=== PATIENT | female | born 1950 | race Caucasian/White ===

== ENCOUNTER 2016-10-30 21:39 | Inpatient (IN) | payer OTHER ==
[~2016-10-30] VITALS: Ht 154.9 cm; Wt 101.0 kg
--- NOTE | ~2016-10-30 | HP ---
ADMIT: 10/31/2016 RM/LOC: 520 [facility] MR#: [id number] [address] [facility] [address] [place] [id number] MARTIN DIOR [address] [place] [address] Pre-OP History and Physical SEX: F AGE: 66 : 1950 DATE OF SERVICE: CHIEF COMPLAINT: Severe pain and fever. HISTORY OF PRESENT ILLNESS: Martin is a 66-year-old white female, who has been in relatively good health until about 6 to 8 months ago, she had been having some tremors. Really not anything of significance that we were mentioning to watch and decided we might want to have her see a neurologist. She felt she had a bad episode the night prior to her admission. She describes it as a tremor that occurred and caused significant pain in the lower abdomen and into the hip areas. On questioning, this seemed to be even a muscle spasm. She just could not get herself comfortable. Up and down. Finally did start to improve. She felt okay most of the day and we had talked to her earlier in the evening. Due to the recurrent return of the pain and inability to get comfortable, she presented to the emergency room there. In the emergency room, she had an extensive workup including a CAT scan just to make sure there was no abscess. It really did not show anything other than questionable lesions on her liver which were new from a previous scan. Laboratory studies were pretty unremarkable except her CRP was elevated. In addition, she had a fever that was a surprise of 102.9. She is admitted at this time for further evaluation. She is not one who typically has problems, so this is highly unusual for her. She really has not had a lot of other symptoms prior to this. PAST MEDICAL HISTORY: Osteoporosis-DEXA 01/20/2011 with FN -0.1 and LS -3.3. Iron deficiency anemia-peripheral blood with microcytic anemia 05/16/1999, bone marrow biopsy at that time, EGD of the colon felt absorption problem. Pulmonary nodule-CT chest 04/27/2014 with a large periesophageal hiatal hernia and 5 to 6 mm indeterminate right upper lobe nodule. Abnormal nuclear stress test-Cardiolite 05/05/1990 with reversible ischemia in the anterior and inferior myocardium, cardiac cath 06/27/1999. Healthcare maintenance-exam 03/27/2016, mammogram 12/21/2014, Cardiolite 05/05/1999, cath 06/27/1999, Pap 07/30/2009, DEXA 01/20/2011, EGD 05/13/2014, colonoscopy 09/04/2008 with mild sigmoid diverticulosis, CT chest 04/27/2014. Mild persistent asthma. Situational depression. GERD with hiatal hernia-saw GI in [place]. Depression.-controlled, vitamin D deficiency, hypothyroidism, hiatal hernia- EGD 03/31/[address] Perez showed large sliding hiatal hernia, CT chest 07/2014 with large hiatal hernia and near complete intrathoracic stomach due to paraesophageal hiatal hernia, UGI 05/13/2014 with large hiatal hernia, GERD with gastritis, EGD 05/13/2014. Mixed hyperlipidemia with increased cholesterol/increased LDL, vaginal hysterectomy for endometriosis, T and A, status post arthroscopy of the knee, breast biopsy 11/15/1995 with fibrosis on the right, nasal septoplasty. MEDICATIONS: On admission: 1. Fosamax weekly. 2. Aspirin 81 mg two pills daily. 3. QVAR two times a day which she is currently not taking at this time. 4. Vitamin D3 of 5000 international units daily. ADMIT: 10/31/2016 RM/LOC: 520 [facility] MR#: [id number] 2620 [facility] [address] [place] [id number] MARTIN DIOR [address] [place] [address] Pre-OP History and Physical SEX: F AGE: 66 : 1950 5. Lexapro 10 mg daily. 6. Fenofibrate or TriCor 54 mg daily. 7. Iron 325 daily. 8. Flovent 1 puff twice daily. 9. Synthroid 88 mcg. 10.Claritin 10 mg daily. 11.Meloxicam 15 daily with food. 12.Centrum Silver. 13.Fish oil 1000 daily. 14.Pravachol 80 mg daily. ALLERGIES: CODEINE WITH NAUSEA AND VOMITING. SOCIAL HISTORY: Nonsmoker, rare alcohol. No drugs. She is retired 01/17/2013 from [employer] at [employer]. FAMILY HISTORY: Father with heart disease and diabetes. Brother with myelodysplastic syndrome and is currently . Paternal grandfather with heart disease. REVIEW OF SYSTEMS: Basically the pain as above, but did not describe it in her back. At this time, it is more in pelvic. Does not have any urinary symptoms at this time. PHYSICAL EXAMINATION: VITAL SIGNS: Blood pressure 139/81, pulse 105, respirations 18, temp 102.9. GENERAL: This is a well-developed, well-nourished, white female, affect appropriate. SKIN: Warm and dry. HEENT: Normocephalic and atraumatic. Anicteric. Mucous membranes moist. NECK: Supple. LUNGS: Clear to auscultation. CARDIOVASCULAR: Regular without murmur or gallop. ABDOMEN: Soft, nondistended. No reproducible pain. GENITOURINARY/RECTAL: Deferred. EXTREMITIES: No edema. IMPRESSION: 1. Bilateral leg and hip pain. ADMIT: 10/31/2016 RM/LOC: 520 [facility] MR#: [id number] [address] [id number] MARTIN DIOR [address] [place] [address] Pre-OP History and Physical SEX: F AGE: 66 : 1950 2. Fever of 102.9. 3. Urinary tract infection. 4. Hypokalemia. 5. Increased CRP. 6. Liver lesions on scan. DISCUSSION: We will get an MRI of the liver mass protocol to look at the liver lesions. We will also look at her back with the MRI to make sure there is nothing going on in her spine. The pain is so severe and does sound radicular. PLAN: See chart. Delores Acuña MD/ kody JOB #: [id number] CC: Delores Acuña, Attending Physician Delores Acuña, Family Physician
[2016-11-05] MEDS ORDERED: LOFIBRA54 MG PO (16:04)
[2016-11-05] MEDS ORDERED: SYNTHROID DP0.088 MG PO (16:04)
[2016-11-05] MEDS ORDERED: IRON325 M1 PO (16:04)
[2016-11-05] MEDS ORDERED: PRAVACHOL80 MG PO (16:04)
[2016-11-05] MEDS ORDERED: FLOVENT 110MCG12 GM IH (16:05)
[2016-11-05] MEDS ORDERED: VITAMIN D35000 UNI1 PO (16:05)
[2016-11-05] MEDS ORDERED: FOSAMAX70 MG PO (16:05)
[2016-11-05] MEDS ORDERED: ZANTAC DPS150 MG PO (16:05)
[2016-11-05] MEDS ORDERED: OMEGA-3 DPS1000 MG PO (16:05)
[2016-11-05] MEDS ORDERED: LEXAPRO DPS10 MG PO (16:05)
[2016-11-05] MEDS ORDERED: ASA CHILDREN'S81 MG PO (16:05)
[2016-11-05] MEDS ORDERED: THERA1 EACH PO (16:06)
[2016-11-05] MEDS ORDERED: POTASSIUM CHLO20 ME2 PO (16:06)
[2016-11-05] MEDS ORDERED: CEFUROXIME250 MG PO (16:06)
--- NOTE | 2016-11-06 13:16 | DS ---
ADMIT: 10/31/2016 RM/LOC: 520 [facility] MR#: [id number] [address] [phone] MARTIN DIOR [address] [place] [address] Discharge Summary SEX: F AGE: 66 : 1950 ADMISSION DATE: 10/31/2016 DISCHARGE DATE: 11/04/2016 DIAGNOSES: 1. Liver mass. 2. Rigors. 3. Fever. 4. Bilateral hip and leg pain. 5. Hypokalemia. 6. Hypertension. 7. Hypothyroid. 8. Elevated CRP (C-reactive protein). 9. Liver lesions. 10.UTI (urinary tract infection) - NOS (not otherwise specified). PROCEDURES: 1. CT abdomen and pelvis, 10/31/2016. 2. MRI of the lumbar spine, 10/31/2016. 3. MRI, liver mass protocol, 10/31/2016. 4. Liver biopsy 11/03/2016. CONSULT: Interventional Radiology. REASON FOR HOSPITALIZATION: Severe bilateral hip and leg pain. See dictated H and P. LABORATORY AND X-RAY DATA: Sodium 143, potassium 3.2, up to 3.5. Chloride 105, CO2 26, BUN 23, down to 13. Creatinine 1.1, down to 0.7. Calcium 8.6, total bilirubin 0.8, total protein 5.7, albumin 3.7, alkaline phosphatase 63, AST 32, LDH 185, ALT 44, GFR 92, free T4 , CRP 17.6. White count 12.1 initially, down to 7.7, hemoglobin 11.4, platelet count 235, sedimentation rate 42. Serum protein electrophoresis was negative. Chest x- ray was negative. CT scan of the abdomen with fatty liver and some hypodense lesions in the liver as well as some diverticulosis. MRI lumbosacral spine with some advanced DJD and some foraminal narrowing but nothing of significance. MRI with liver mass protocol with multiple liver masses, which were indeterminate. Consideration for metastases is entertained. Fatty liver was also noted as well as a ventral wall abdominal hernia. Liver biopsy was performed and results are pending. COURSE IN THE HOSPITAL: Frida was admitted after coming to the hospital with severe pain. Refractory to the IV pain medications. At the time, she had a fever of 102.9, which was a bit unexpected. For the possibility of a urinary tract infection, she was started on Rocephin. Urine culture did not grow anything but we did keep the antibiotic going. Potassium was low. We did supplement. The liver masses were new and a little concerning. We evaluated further and did have her undergo liver biopsy. The results are pending. She continued to improve and became stronger. She was ready for dismissal on 11/04/2016 awaiting the results of her biopsy. ADMIT: 10/31/2016 RM/LOC: 520 [facility] MR#: [id number] [address] [address] MARTIN DIOR [address] [place] [address] Discharge Summary SEX: F AGE: 66 : 1950 DISCHARGE INSTRUCTIONS: Discharge instructions include: 1. Potassium 20 mEq daily. 2. Lexapro 10 mg daily. 3. Zantac 150 daily. 4. Synthroid 0.088 mg daily. 5. Vitamin daily. 6. Flovent 110 one puff b.i.d. 7. Ceftin 250 b.i.d. for five days. 8. Pravachol 80 mg daily. 9. TriCor 54 mg daily. 10.Iron daily. 11.Vitamin D3 5000 international units daily. 12.Aspirin 81 mg two pills daily. 13.Fish oil 1000 daily. 14.Alendronate 60 mg weekly. 15.Escitalopram 10 mg daily. She will see me in 2-3 weeks. Time spent is 35 minute. Delores Acuña MD/ neil JOB #: [id number] CC: Delores Acuña MD, Attending Physician Delores Acuña MD, Family Physician
--- NOTE | 2016-11-14 12:56 | ER ---
ADMIT: 10/30/2016 RM/LOC: ER [facility] MR#: [id number] [address] [address] MARTIN DIOR [address] [place] [address] Emergency Room Report SEX: F AGE: 66 : 1950 DATE: 10/30/2016 HISTORY OF PRESENT ILLNESS: A 66-year-old female, who woke last night with sudden severe bilateral hip and leg pain. She said they lasted for several hours and went away, then came back later in the day and not as severe. She had not been able to get comfortable all day secondary to this intermittent pain in both legs, which she described as an achy, heavy sensation in both legs. Subsequently, came to the Emergency Department for an evaluation for the leg pain. PAST MEDICAL HISTORY: Significant for Young fundoplication of ventral hernia, hypertension, hypercholesterolemia. LIMITED PHYSICAL EXAMINATION: GENERAL: Reveals a 66-year-old female, in moderate amount of distress, unable to get comfortable. She is rocking back and forth from side to side and was positioned on the gurney saying her legs are aching, but it is primarily in her hips on the lateral side. HEENT: Normocephalic, atraumatic. LUNGS: Clear to auscultation. CARDIOVASCULAR: Regular rate and rhythm with no murmurs. ABDOMEN: Soft. There is a small ventral hernia near the epigastrium which is easily reducible and nontender. She does have some mild suprapubic tenderness. MUSCULOSKELETAL: Her hips are mildly tender to deep palpation. There is no spinal tenderness to percussion. Motor strength is 5/5 in lower extremities bilaterally as with sensation. EMERGENCY ROOM COURSE: A CBC revealed white count of 12.1. Chemistry panel was essentially normal. Lactic acid was 1.1. Urinalysis had 27 wbc's, 3+ leukocyte esterase. A CT scan of the abdomen revealed a possible incarcerated ventral hernia, otherwise was essentially unremarkable. The patient was given Fentanyl in the Emergency Department as well as Zofran and Dilaudid. She is given p.o. Cipro. She is being admitted for intractable back pain of uncertain etiology, and a urinary tract infection. John Sherman MD/ kody JOB #: [id number] CC: Romero Wilde MD, Attending Physician
== END 2016-11-04 12:00 | disposition home or self-care (01) | DRG 555 ==
LOC: ER 21:39 → 5MS 10-31 00:13
PROVIDERS: ADMIT Internal Medicine
PROC: 0FB23ZX Excision of Left Lobe Liver, Percutaneous Approach, Diagnostic (ICD-10-PCS; principal; 2016-11-03)
DX: M25.552 Pain in left hip (principal); K75.0 Abscess of liver; N39.0 Urinary tract infection, site not specified; I10 Essential (primary) hypertension; E78.00 Pure hypercholesterolemia, unspecified; M25.551 Pain in right hip; M54.9 Dorsalgia, unspecified; R25.1 Tremor, unspecified; E87.6 Hypokalemia; R79.89 Other specified abnormal findings of blood chemistry; M81.0 Age-related osteoporosis without current pathological fracture; J45.30 Mild persistent asthma, uncomplicated; K21.9 Gastro-esophageal reflux disease without esophagitis; K44.9 Diaphragmatic hernia without obstruction or gangrene; F32.9 Major depressive disorder, single episode, unspecified; E55.9 Vitamin D deficiency, unspecified; E78.2 Mixed hyperlipidemia; E03.9 Hypothyroidism, unspecified; Z79.82 Long term (current) use of aspirin